=== PATIENT | female | born 1955 | race Caucasian/White ===

== ENCOUNTER → 2018-08-26 | Day surgery (SDC) | payer MEDICARE ==
[2018-08-16 14:51] LABS: HEMATOCRIT 43.1 % (34.2-44.1)
[~2018-08-26] MED LIST: ALENDRONATE SOD70 MG PO; ALLOPURINOL300 MG PO; AMLODIPINE BESY10 MG PO; AZITHROMYCIN250 MG PO; BUPIVACAINE HC 0.75% PF 10ML VIAL INJ ONE; CHONDR SU A NA/HYALUR SOD 1 EACH KIT IO ONE; CRESTOR10 MG PO; CYCLOPENTOLATE HCL 2% OPTH SOLN 2 ML BTL OP ONE; DOXYCYCLINE HY100 MG PO; EPINEPHRINE HCL INJ 1 MG/ML AMP ONE; FENOFIBRATE145 MG PO; FENTANYL CITRATE/PF 100MCG/2 ML INJ ONE; FUROSEMIDE40 MG PO; GATIFLOXACIN(OPTH) 5 ML LIQD ONE; GLIPIZIDE ER5 MG PO; HYDRALAZINE HCL25 MG PO; INSULIN REGULAR, HUMAN 100 UNIT/1 ML 3ML VIAL ONE; LEVOTHYROXINE50 MCG PO; LIDOCAINE 2% /EPINEPHRINE 20 ML SDV INJ ONE; LIDOCAINE HCL 2% LOCAL INJ 5 ML SDV VIAL INJ ONE; LIDOCAINE HCL-PF 4% 40 MG/1 ML 5ML AMP ONE; LISINOPRIL10 MG PO; LYRICA75 MG PO; MECLIZINE HCL12.5 MG PO; MIDAZOLAM HCL 2 MG/2 ML VIAL ONE; MUCUS RELIEF400 MG PO; ONDANSETRON ODT8 MG PO; PANTOPRAZOLE SO40 MG PO; PHENYLEPHRINE HCL 2 ML DROPS ONE; PILOCARPINE HCL(OPTH) 15 ML LIQD ONE; POVIDONE IODINE 5% (OPTH) 30 ML BTL ONE; PROPOFOL IV EMULSION 10 MG/ML 20 ML VIAL ONE; TIZANIDINE HCL4 MG PO; TOBRAMYCIN/DEXAMETHASONE(OPTH) 3.5 GM TUBE ONE; ULTRAM50 MG PO; VENETOCLAX PO; ZOLPIDEM TARTRAT5 MG PO
[2018-08-26 09:12] LABS: ANION GAP 15.1 mmol/L (8-16); CALCIUM 9.4 mg/dL (8.4-10.2); CREATININE, SERUM 1.17 mg/dL (0.57-1.11); POTASSIUM 4.1 mmol/L (3.5-5.1)
[2018-08-26 11:00] VITALS: BP 120/75
== END | disposition home or self-care (01) ==
LOC: OR 06:45
PROVIDERS: ATTEND Ophthalmology
DX: H25.12 Age-related nuclear cataract, left eye (principal); C91.10 Chronic lymphocytic leukemia of B-cell type not having achieved remission; I10 Essential (primary) hypertension; E11.9 Type 2 diabetes mellitus without complications; E03.9 Hypothyroidism, unspecified; K21.9 Gastro-esophageal reflux disease without esophagitis; Z88.0 Allergy status to penicillin; Z01.810 Encounter for preprocedural cardiovascular examination; Z01.812 Encounter for preprocedural laboratory examination; Z79.84 Long term (current) use of oral hypoglycemic drugs
CPT/HCPCS: 36415; 66982; 80048; 82948; 85014; 85018; 93005; J0171; J2001 ×2; J2250; V2632

== ENCOUNTER → 2018-11-04 | Day surgery (SDC) | payer MEDICARE ==
[2018-11-03 13:11] LABS: BASOPHILS % 0.3 % (0.0-1.0); EOSINOPHILS % 0.5 % (0.0-6.0); HEMATOCRIT 41.8 % (34.2-44.1); LYMPHOCYTES # (AUTO) 2.2 (1.0-3.2); LYMPHOCYTES % 36.6 % (18.0-39.1); MEAN CORPUSCULAR HGB CONC 33.5 g/dL (31-35); MEAN CORPUSCULAR VOLUME 89.7 fL (81-99); MONOCYTES # (AUTO) 0.6 (0.2-0.8); MONOCYTES % 9.4 % (4.4-11.3); NEUTROPHILS # (AUTO) 3.1 (2.1-6.9); NEUTROPHILS % 52.9 % (38.7-80.0); PLATELET COUNT 131 x10e3/uL (140-360); RED BLOOD COUNT 4.66 x10e6/uL (3.6-5.1); RED CELL DISTRIBUTION WIDTH 14.7 % (11.7-14.4)
[2018-11-03 13:26] LABS: ANION GAP 16.7 mmol/L (8-16); CALCIUM 9.3 mg/dL (8.4-10.2); CREATININE, SERUM 1.3 mg/dL (0.57-1.11); POTASSIUM 3.7 mmol/L (3.5-5.1)
[~2018-11-04] MED LIST changes: -BUPIVACAINE HC 0.75% PF 10ML VIAL INJ ONE; -FENTANYL CITRATE/PF 100MCG/2 ML INJ ONE; -PHENYLEPHRINE HCL 2 ML DROPS ONE; +PREOP PHACO EYE KIT ONE
--- OUTSIDE RECORDS SUMMARY | 2018-11-04 05:18 | XMS REPORT | Continuity of Care Document ---
Author Author [facility] Interface Address Unknown Phone Unavailable Problems Problem Status Onset Date Classification Date Reported Comments Source CORONARY ARTERY DISEASE Active Problem 09/18/2018 Brennen Alana Carotid Stenosis w/o Infract Active Problem 09/18/2018 Brennen Alana Chronic kidney disease, stage III Active Problem 09/18/2018 Brennen Alana Paronychia of finger Active Problem 09/18/2018 Brennen Alana Headache Active Problem 09/18/2018 Brennen Alana Lumbar radiculopathy, acute Active Problem 09/18/2018 Brennen Alana Lumbar disc herniation Active Problem 09/18/2018 Brennen Alana Type 2 diabetes mellitus, uncontrolled Active Problem 09/18/2018 Brennen Alana Diabetic neuropathy Active Problem 09/18/2018 Brennen Alana Chronic lymphoid leukemia Active Problem 09/18/2018 Brennen Alana Hypothyroid Active Problem 09/18/2018 Brennen Alana Diabetic neuropathy associated with type 2 diabetes mellitus Active Problem 09/18/2018 Brennen Alana Osteopenia Active Problem 09/18/2018 Brennen Alana Lumbar radiculopathy Active Problem 09/18/2018 Brennen Alana Pneumonia Active Problem 09/18/2018 Brennen Alana Insomnia, unspecified type Active Problem 09/18/2018 Brennen Alana Persistent asthma, unspecified asthma severity, unspecified whether complicated Active Problem 09/18/2018 Brennen Alana Essential hypertension Active Problem 09/18/2018 Brennne Alana Insomnia Active Problem 09/18/2018 Brennen Alana Hypoglycemia Active Problem 09/18/2018 Brennen Alana Osteoporosis Active Problem 09/18/2018 Brennen Alana Mucopurulent chronic bronchitis Active Problem 09/18/2018 Brennen Alana COPD exacerbation Active Problem 09/18/2018 Brennen Alana History of colon polyps Active Problem 09/18/2018 Brennen Alana Gastroesophageal reflux disease, esophagitis presence not specified Active Problem 09/18/2018 Brennen Alana Sleep apnea, unspecified Active Problem 09/18/2018 Brennen Alana GERD Active Problem 09/18/2018 Brennen Alana Gout Active Diagnosis 09/18/2018 Brennen Alana Osteoarthritis of knees, bilateral Active Problem 09/18/2018 Brennen Alana Asymptomatic menopausal state Active Problem 09/18/2018 Brennen Alana 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 Active Problem 09/18/2018 Brennen Alana Hypertriglyceridemia Active Diagnosis 09/18/2018 Brennen Alana Other [facility] drug therapy Active Problem 09/18/2018 Brennen Alana Cataract with complication of left eye, unspecified complicated cataract type Active Diagnosis 04/01/2018 Brennen Alana Medications Medication Details Route Status Patient Instructions Ordering Provider Order Date Source Synthroid 1 tab(s) orally Active 25 mcg (0.025 mg) orally once a day [facility] Brennen Alana Tricor 1 tab(s) orally Active 145 mg orally once a day [place] Brennen Alana Crestor 1 tab(s) orally Active 20 mg orally once a day (at bedtime) [place] Brennen Alana furosemide 1 tab(s) orally Active 20 mg orally once a day [place] Brennen Alana amlodipine 1 tab(s) orally Active 10 mg orally once a day [place] Brennen Alana Tresiba as directed 60 units subcantaneously Active 200 ml subcantaneously once daily [place] Brennen Alana GlipiZIDE XL 1 tab(s) orally Active 10 mg orally once a day [place] Brennen Alana pantoprazole 1 TAB(S) BID X 1MONTH THEN QD ORALLY 90 orally Active 40 mg orally qd [place] Brennen Alana HydrALAZINE Hydrochloride 1/2 tab(s) orally Active 50 mg orally bid [place] Brennen Alana allopurinol 1 tab(s) orally Active 300 mg orally once a day [place] Brennen Alana Allergies, Adverse Reactions, Alerts Substance Category Reaction Severity Reaction type Status Date Reported Comments Source Immunizations Immunization Date Given Site Status Last Updated Comments Source Results Order Name Results Value Reference Range Date Interpretation Comments Source Vital Signs Vital Sign Value Date Comments Source Encounters Location Location Details Encounter Type Encounter Number Reason For Visit Attending Provider ADM Date DC Date Status Source Procedures Procedure Code Date Perfomer Comments Source
--- OUTSIDE RECORDS SUMMARY | 2018-11-04 05:18 | XMS REPORT ---
Author Author TRACIE VELAZCO Organization [employer] Address Unknown Phone Unavailable Care Team Providers Care Custodian Name Role Phone TRACIE VELAZCO CP Unavailable Allergies No Known Allergies Problems Problem Type Condition Code Onset Dates Condition Status Problem CORONARY ARTERY DISEASE 414.01 Active Problem Carotid Stenosis w/o Infract 433.90 Active Problem Chronic kidney disease, stage III 585.3 Active Problem Paronychia of finger 681.02 Active Problem Headache 784.0 Active Problem Lumbar radiculopathy, acute 724.4 Active Problem Lumbar disc herniation 722.10 Active Problem Type 2 diabetes mellitus, uncontrolled E11.65 Active Problem Diabetic neuropathy (HCC) E11.40 Active Problem Chronic lymphoid leukemia C91.10 Active Problem Hypothyroid E03.9 Active Problem Diabetic neuropathy associated with type 2 diabetes mellitus (HCC) E11.40 Active Problem Osteopenia M85.80 Active Problem Lumbar radiculopathy M54.16 Active Problem Pneumonia J18.9 Active Problem Insomnia, unspecified type G47.00 Active Problem Persistent asthma, unspecified asthma severity, unspecified whether complicated J45.909 Active Problem Essential hypertension I10 Active Problem Insomnia G47.00 Active Problem Hypoglycemia E16.2 Active Problem Osteoporosis M81.0 Active Problem Mucopurulent chronic bronchitis J41.1 Active Problem COPD exacerbation J44.1 Active Problem History of colon polyps Z86.010 Active Problem Gastroesophageal reflux disease, esophagitis presence not specified K21.9 Active Problem Sleep apnea, unspecified G47.30 Active Problem GERD (gastroesophageal reflux disease) K21.9 Active Problem Gout M10.9 Active Problem Osteoarthritis of knees, bilateral M17.0 Active Problem Asymptomatic menopausal state Z78.0 Active Problem 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
--- OUTSIDE RECORDS SUMMARY | 2018-11-04 05:18 | XMS REPORT ---
Author Author TRACIE VELAZCO Organization [employer] Address Unknown Phone Unavailable Care Team Providers Care Cheese Cooker Name Role Phone TRACIE VELAZCO CP Unavailable [...] Active Problem Hypertriglyceridemia E78.1 Active Problem Other care home (current) drug therapy Z79.899 Active Medications No Known Medications Results No Known Results Summary Purpose [employer] Submission
--- OUTSIDE RECORDS SUMMARY | 2018-11-04 05:18 | XMS REPORT ---
Author Author TRACIE VELAZCO Organization [employer] Address Unknown Phone Unavailable Care Team Providers Care Drier Unloader Name Role Phone TRACIE VELAZCO CP Unavailable [...] Active Problem Hypertriglyceridemia E78.1 Active Problem Other moth exterminator (current) drug therapy Z79.899 Active Medications No Known Medications Results No Known Results Summary Purpose [employer] Submission
--- OUTSIDE RECORDS SUMMARY | 2018-11-04 05:18 | XMS REPORT ---
Author Author TRACIE VELAZCO [facility] [employer] Address Unknown Phone Unavailable Care Team Providers Care County Agent Name Role Phone TRACIE VELAZCO CP Unavailable Allergies No Known Allergies Problems Problem Type Condition Code Onset Dates Condition Status Problem CORONARY ARTERY DISEASE 414.01 Active Assessment Type 2 diabetes mellitus, uncontrolled E11.65 Active Problem Carotid Stenosis w/o Infract 433.90 [...] Active Problem Sleep apnea, unspecified G47.30 Active Assessment Cataract with complication of left eye, unspecified complicated cataract type H26.20 Active Problem GERD (gastroesophageal reflux disease) K21.9 [...]
--- OUTSIDE RECORDS SUMMARY | 2018-11-04 05:18 | XMS REPORT ---
Author Author TRACIE VELAZCO Organization [employer] Address Unknown Phone Unavailable Care Team Providers Care Crop Farm Helper Name Role Phone TRACIE VELAZCO CP Unavailable [...] Active Problem Hypertriglyceridemia E78.1 Active Problem Other long term care social worker (current) drug therapy Z79.899 Active Medications No Known Medications Results No Known Results Summary Purpose [employer] Submission
--- OUTSIDE RECORDS SUMMARY | 2018-11-04 05:18 | XMS REPORT ---
Author Author TRACIE VELAZCO Organization [employer] Address Unknown Phone Unavailable Care Team Providers Care Bander And Cellophaner Machine Helper Name Role Phone TRACIE VELAZCO CP [...] Active Problem Hypertriglyceridemia E78.1 Active Problem Other senior living (current) drug therapy Z79.899 Active Medications No Known Medications Results No Known Results Summary Purpose [employer] Submission
--- OUTSIDE RECORDS SUMMARY | 2018-11-04 05:19 | XMS REPORT ---
Author Author TRACIE VELAZCO [facility] [employer] Address Unknown Phone Unavailable Care Team Providers Care Manager Office Name Role Phone TRACIE VELAZCO CP Unavailable [...] disease, esophagitis presence not specified K21.9 Active Assessment Hypertriglyceridemia E78.1 Active Problem Sleep apnea, unspecified G47.30 Active Assessment Type 2 diabetes mellitus, uncontrolled E11.65 Active Problem GERD (gastroesophageal reflux disease) K21.9 Active Assessment Gout M10.9 Active Problem Gout M10.9 Active Assessment Essential hypertension I10 Active Problem Osteoarthritis of knees, bilateral M17.0 Active Problem Asymptomatic menopausal state Z78.0 Active Assessment Hypothyroid E03.9 Active Problem 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 E08.21 Active Problem Hypertriglyceridemia E78.1 Active Problem Other long term care pharmacist (current) drug therapy Z79.899 Active Medications Medication Code System Code Instructions Start Date End Date Status Dosage Synthroid [facility] 62447388620 25 mcg (0.025 mg) orally once a day Active 1 tab(s) Tricor [facility] 19963185017 145 mg orally once a day Active 1 tab(s) Crestor [facility] 96712721758 20 mg orally once a day (at bedtime) Active 1 tab(s) furosemide [facility] 45921050821 20 mg orally once a day Active 1 tab(s) amlodipine [facility] 37433340607 10 mg orally once a day Active 1 tab(s) Tresiba [facility] 24039126509 200 ml subcantaneously once daily Active as directed 60 units GlipiZIDE XL [facility] 76740412896 10 mg orally once a day Active 1 tab(s) pantoprazole [facility] 36298515016 40 mg orally qd Active 1 TAB(S) BID X 1MONTH THEN QD ORALLY 90 HydrALAZINE Hydrochloride [facility] 82152749662 50 mg orally bid Active 1/2 tab(s) allopurinol [facility] 44838005173 300 mg orally once a day Active 1 tab(s) Results No Known Results Summary Purpose [employer] Submission
--- NOTE | 2018-11-04 07:16 | NUR ---
SPIRITUAL CARE - Pre-Surgery Assessment: Pt in bed. Pt reported supportive attention from family and friends. Intervention: I provided pastoral presence, hospitality, and sympathetic listening. I acquainted pt with availability of system software programmer while hospitalized. Outcome: Pt expressed appreciation for visit. No need for follow up indicated at this time. MARLA Corbettlain Spiritual Care Department O: [phone] Pager: [phone] ([phone] number calling from)
[2018-11-04 08:40] VITALS: BP 110/72
== END | disposition home or self-care (01) ==
LOC: OR 05:15
PROVIDERS: ATTEND Ophthalmology
DX: H25.11 Age-related nuclear cataract, right eye (principal); C91.10 Chronic lymphocytic leukemia of B-cell type not having achieved remission; I10 Essential (primary) hypertension; E11.9 Type 2 diabetes mellitus without complications; K57.90 Diverticulosis of intestine, part unspecified, without perforation or abscess without bleeding; Z01.812 Encounter for preprocedural laboratory examination; Z88.0 Allergy status to penicillin; Z79.84 Long term (current) use of oral hypoglycemic drugs; Z87.01 Personal history of pneumonia (recurrent)
CPT/HCPCS: 36415 ×2; 66982; 80048; 82948; 85025; J0171; J2001 ×2; J2250; J2704; V2632